=== PATIENT | male | born 1935 | race Caucasian/White ===

== ENCOUNTER 2016-10-28 20:18 | Emergency (ER) | payer MEDICARE, BC ==
[~2016-10-28 20:18] MED LIST: Lidocaine 1% with EPINEPHrine 1:100,000 10 ML MDV INFILT ONE
[2016-10-28] MEDS ORDERED: Diphtheria,Pertussis(Acell),Tetanus Vaccine 0.5 ML SDV IM ONE (21:25)
[2016-10-28] MEDS ORDERED: Cephalexin 500 MG Cap PO ONE (21:38)
[2016-10-28] MEDS ORDERED: Acetaminophen/HYDROcodone 325-5 MG Tab PO ONE (21:38)
[2016-10-28 21:44] VITALS: BP 138/67
--- NOTE | 2016-11-02 16:30 | ER ---
DATE SEEN: 10/28/2016 TIME SEEN: The patient was seen at 2099, was brought at 2049. 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 No compromised sensation in the hand. Can move his fingers well. Tetanus is not up-to-date. He is not on antibiotics. ALLERGIES: He has no allergies. PAST MEDICAL HISTORY: Significant for usin. Warfarin. 2. Lipitor. 3. Metoprolol. 4. Gabapentin. 5. Spiriva. 6. Donepezil. Atrial fibrillation. ALLERGIES: None. MEDICATIONS: As noted above. IMMUNIZATIONS: Tdap is not up to date. Was given today. PHYSICAL EXAMINATION: VITAL SIGNS: Blood pressure 150/54, heart rate 70, respirations 16, pulse oximetry 96%, temperature is 36.1. The patient has irregular heartbeat. HEENT: He has a slight droop on the side of his face, right-sided droop greater than left. GENERAL: He is an alert man in no acute distress. He is accompanied by his . NECK: Without bruits. LUNGS: Clear. HEART: Without murmur. Has occasional irregular beat. ABDOMEN: Soft. No guarding. No abdominal discomfort. EXTREMITIES: Without edema. Left upper extremity, mid lateral forearm has a 3 cm laceration which is triangular in appearance. Wound was cleansed in the sink previously and then lavaged and cleansed again and then injected with 1% lidocaine with epinephrine. The wound was then closed with 6 stitches, 3 somewhat larger stitches for bringing the subcu and dermis together and then 3 other smaller stitches to realign the dermis. The patient tolerated the procedure well. No complications. The wound was dressed. Bacitracin applied. PLAN: Use Keflex 500 mg q.i.d. for 10 days. If any sign of redness or infection, see the doctor earlier, otherwise follow up with doctor in 3 days to evaluate the status. There is always a risk [place] because he could have some contaminants even though it was thoroughly washed and cleaned and lavaged. DIAGNOSES: Laceration left forearm 3 cm single-layer closure. Tetanus given. Otherwise healthy, has mild dementia. Taking anticoagulants, atrial fibrillation, dyslipidemia, hypertension. /[id number] NACHO/JOSAFAT
== END 2016-10-28 21:42 | disposition home or self-care (01) ==
LOC: FB.ED 20:18
DX: S51.812A Laceration without foreign body of left forearm, initial encounter (principal); I48.91 Unspecified atrial fibrillation; Z79.01 Long term (current) use of anticoagulants; W31.89XA Contact with other specified machinery, initial encounter
CPT/HCPCS: 12002; 90471; 90715; 99282; A9270

== ENCOUNTER 2017-03-01 13:30 | Emergency (ER) | payer MEDICARE, BC ==
--- NOTE | 2017-03-01 13:55 | EDM.PDOC ---
ED HPI GENERAL MEDICAL PROBLEM - General Chief Complaint: Laceration Stated Complaint: HEAD ELBOW BACK PAIN Time Seen by Provider: 03/01/17 13:35 Source of Information: Reports: Patient, Family History Limitations: Reports: Altered Mental Status - History of Present Illness INITIAL COMMENTS - FREE TEXT/NARRATIVE: Sukhwinder comes to [facility] ED with a scalp laceration that occurred unwitnessed this am while family was in [place], [place] to a medical appointment. He does know what or when the fall happened, or what he struck. He has an occipital scalp laceration and some contusions with superficial lacerations to the LUE. He denies chest pain, SOB, palpitations, dizziness, GI or upset. He is ambulatory. He takes Warfarin for AF. - Related Data Allergies Allergy/AdvReac Type Severity Reaction Status Date / Time No Known Allergies Allergy Verified 03/01/17 14:13 Home Meds: Home Meds Cephalexin [Keflex 250 MG/5 ML Susp] 500 mg PO Q6HR #20 tab 10/28/16 [Rx] Cephalexin [Keflex] 500 mg PO QID #20 capsule 10/28/16 [Rx] Donepezil HCl 10 mg PO BEDTIME 10/28/16 [History] Gabapentin [Neurontin] 900 mg PO BEDTIME 10/28/16 [History] Metoprolol Tartrate 25 mg PO BEDTIME 10/28/16 [History] Multivitamin [Multi-Day Vitamins] 1 intnl unit PO DAILY 10/28/16 [History] Tiotropium [Spiriva HandiHaler] 1 inhaler PO ASDIRECTED 10/28/16 [History] Warfarin Sodium [Jantoven] 5 mg PO ASDIRECTED 10/28/16 [History] atorvaSTATin [Lipitor] 20 mg PO BEDTIME 10/28/16 [History] Past Medical History HEENT History: Reports: Cataract, Impaired Vision Other HEENT History: wears glasses Cardiovascular History: Reports: Afib, High Cholesterol, Hypertension Respiratory History: Reports: COPD Hematologic History: Reports: Anticoagulation Therapy - Past Surgical History HEENT Surgical History: Reports: Tonsillectomy GI Surgical History: Reports: Appendectomy Social & Family History - Family History Family Medical History: Noncontributory - Tobacco Use Smoking Status *Q: Never Smoker Second Hand Smoke Exposure: No - Caffeine Use Caffeine Use: Reports: None - Recreational Drug Use Recreational Drug Use: No ED ROS GENERAL - Review of Systems Review Of Systems: Unable To Obtain (not a reliable historian to current or past events.) - Physical Exam Exam: See Below Exam Limited By: Altered Mental Status General Appearance: Alert, WD/WN, Mild Distress Eye Exam: Bilateral Eye: EOMI, Normal Inspection, PERRL Ears: Normal External Exam Nose: Normal Inspection Throat/Mouth: Normal Inspection, Normal Oropharynx Head Exam: Normocephalic, Scalp Lacerations (3.5 cm) Neck: Normal Inspection, Non-Tender, Full Range of Motion Respiratory/Chest: No Respiratory Distress, Lungs Clear, Normal Breath Sounds, No Accessory Muscle Use, Chest Non-Tender Cardiovascular: No Murmur, Irregularly Irregular GI/Abdominal: Normal Bowel Sounds, Soft, Non-Tender, No Organomegaly, No Distention, No Mass Neuro Exam (Abbreviated): Alert, CN II-XII Intact, No Motor/Sensory Deficits, Confused, Memory Loss Recent Events Back Exam: Normal Inspection Extremities: Normal Range of Motion, Other (contusions and superficial lacerations to LUE) Psychiatric: Other (mood neutral) Skin Exam: Warm, Dry, Ecchymosis, Erythema (LUE) ED Add Procedures - Additional/Other Procedure(s) Procedure(s) (Free Text): With patient consent, the 3.5 cm scalp wound was cleaned, and closed with standard tera x 5. Patient tolerated procedure well. Course - Vital Signs Text/Narrative:: Mr Caballero remained stable at the [facility] ED. Results of lab work was baseline including EKG. 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 Case was discussed with family. Mr Caballero is demonstrating poor insight and judgement, and would benefit from further neurological evaluation. He was advised not to drive a POV. - Orders/Labs/Meds Orders: Active Orders 24 hr Category Date Time Status Head wo Cont [CT] Stat Exams 03/01/17 13:47 Taken URINALYSIS W/MICROSCOPIC [UA W/MICROSCOPIC] [URIN] Stat Lab 03/01/17 13:47 Uncollected EKG 12 Lead [EK] Routine Ther 03/01/17 13:47 Ordered Labs: Laboratory Tests 03/01/17 03/01/17 03/01/17 Range/Units 14:25 14:25 14:25 WBC 13.0 H (4.5-12.0) X10-3/uL RBC 4.70 (4.30-5.75) x10(6)uL Hgb 14.3 (11.5-15.5) g/dL Hct 42.4 (30.0-51.3) % MCV 90.1 (80-96) fL MCH 30.4 (27.7-33.6) pg MCHC 33.8 (32.2-35.4) g/dL RDW 13.2 (11.5-15.5) % Plt Count 238 (125-369) X10(3)uL MPV 7.8 (7.4-10.4) fL Neut % (Auto) 75.0 (46-82) % Lymph % (Auto) 14.6 (13-37) % [place] % (Auto) 7.0 (4-12) % Eos % (Auto) 2 (1.0-5.0) % Baso % (Auto) 2 (0-2) % Neut # (Auto) 9.8 H (1.6-8.3) # Lymph # (Auto) 1.9 (0.6-5.0) # [place] # (Auto) 0.9 (0.0-1.3) # Eos # (Auto) 0.2 (0.0-0.8) # Baso # (Auto) 0.2 (0.0-0.2) # PT 18.4 H (8.7-11.1) INR 1.80 H (0.89-1.13) Sodium 139 (135-145) mmol/L Potassium 4.6 (3.5-5.3) mmol/L Chloride 102 (100-110) mmol/L Carbon Dioxide 28 (21-32) mmol/L BUN 20 H (7-18) mg/dL Creatinine 1.2 (0.70-1.30) mg/dL Est Cr Clr Drug Dosing 52.71 mL/min Estimated GFR (MDRD) 58 L (>60) BUN/Creatinine Ratio 16.7 (9-20) Glucose 113 (80-116) mg/dL Calcium 9.4 (8.6-10.2) mg/dL Total Bilirubin 0.5 (0.1-1.3) mg/dL AST 42 H (5-25) IU/L ALT 43 H (12-36) U/L Alkaline Phosphatase 81 (56-112) IU/L Troponin I (<0.017-0.056) ng/mL Total Protein 7.7 (6.0-8.0) g/dL Albumin 4.0 (3.2-4.6) g/dL Globulin 3.7 g/dL Albumin/Globulin Ratio 1.1 03/01/ Range/Units 14:25 WBC (4.5-12.0) X10-3/uL RBC (4.30-5.75) x10(6)uL Hgb (11.5-15.5) g/dL Hct (30.0-51.3) % MCV (80-96) fL MCH (27.7-33.6) pg MCHC (32.2-35.4) g/dL RDW (11.5-15.5) % Plt Count (125-369) X10(3)uL MPV (7.4-10.4) fL Neut % (Auto) (46-82) % Lymph % (Auto) (13-37) % [place] % (Auto) (4-12) % Eos % (Auto) (1.0-5.0) % Baso % (Auto) (0-2) % Neut # (Auto) (1.6-8.3) # Lymph # (Auto) (0.6-5.0) # [place] # (Auto) (0.0-1.3) # Eos # (Auto) (0.0-0.8) # Baso # (Auto) (0.0-0.2) # PT (8.7-11.1) INR (0.89-1.13) Sodium (135-145) mmol/L Potassium (3.5-5.3) mmol/L Chloride (100-110) mmol/L Carbon Dioxide (21-32) mmol/L BUN (7-18) mg/dL Creatinine (0.70-1.30) mg/dL Est Cr Clr Drug Dosing mL/min Estimated GFR (MDRD) (>60) BUN/Creatinine Ratio (9-20) Glucose (80-116) mg/dL Calcium (8.6-10.2) mg/dL Total Bilirubin (0.1-1.3) mg/dL AST (5-25) IU/L ALT (12-36) U/L Alkaline Phosphatase (56-112) IU/L Troponin I < 0.017 L (<0.017-0.056) ng/mL Total Protein (6.0-8.0) g/dL Albumin (3.2-4.6) g/dL Globulin g/dL Albumin/Globulin Ratio Departure - Departure Time of Disposition: 15:23 Disposition: Home, Self-Care 01 Condition: Fair Clinical Impression: Chronic subdural hematoma Laceration of occipital scalp Qualifiers: Encounter type: initial encounter Qualified Code(s): S01.01XA - Laceration without foreign body of scalp, initial encounter - Discharge Information Referrals: Delmer Tristan MD [Primary Care Provider] - Forms: ED Department Discharge - Problem List & Annotations (1) Chronic subdural hematoma SNOMED Code(s): 72370060 Code(s): I62.03 - NONTRAUMATIC CHRONIC SUBDURAL HEMORRHAGE Status: Acute Current Visit: Yes Annotation/Comment:: Advised follow up with Neurology regarding any further assessment. No change in meds. Bring urine specimen to ED when available. (2) Laceration of occipital scalp SNOMED Code(s): 727871441 Code(s): S01.01XA - LACERATION WITHOUT FOREIGN BODY OF SCALP, INITIAL ENCOUNTER Status: Acute Current Visit: Yes Annotation/Comment:: routine wound cares, and staple removal in 1 week. Qualifiers: Encounter type: initial encounter Qualified Code(s): S01.01XA - Laceration without foreign body of scalp, initial encounter (3) Back pain SNOMED Code(s): 672000849 Code(s): M54.9 - DORSALGIA, UNSPECIFIED Status: Acute Current Visit: Yes Annotation/Comment:: Upper back and shoulder girdle pains NOS. Mr Caballero's exam is nonfocal, and he is nonfocused about the nature of the fall. He may take Tylenol for pain. Qualifiers: Back pain location: thoracic back pain Chronicity: unspecified - Problem List Review Problem List Initiated/Reviewed/Updated: Yes - My Orders Last 24 Hours: My Active Orders 03/01/17 13:47 Head wo Cont [CT] Stat URINALYSIS W/MICROSCOPIC [UA W/MICROSCOPIC] [URIN] Stat EKG 12 Lead [EK] Routine - Assessment/Plan Last 24 Hours: My Active Orders 03/01/17 13:47 Head wo Cont [CT] Stat URINALYSIS W/MICROSCOPIC [UA W/MICROSCOPIC] [URIN] Stat EKG 12 Lead [EK] Routine Plan: Follow up with PCP.
[2017-03-01 16:18] VITALS: BP 120/76
--- NOTE | 2017-03-02 14:37 | CT ---
INDICATION: Unwitnessed fall. Recent episode of confusion, laceration back of head. Patient on blood thinners. No headache or new dizziness. CT HEAD WITHOUT CONTRAST: Serial contiguous 2.5 and 5-mm sections were obtained through the brain without contrast. No comparisons were available. Study date 03/01/2017. Total Exam DLP = 949.36 mGy-cm. Paranasal sinuses and mastoid air cells appear to be well aerated. No definite cranial fracture site could be identified. Degenerative changes are noted at the atlantoodontoid joint of moderate degree. Calcifications are noted in the right vertebral and bilateral internal carotid arteries. No shift of midline structures is noted. Ventricles are prominent with the right lateral ventricle more prominent than the left. 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 At least a portion of this finding could be acute. However, no shift of midline structure was seen and no focal impression upon the lateral ventricle was identified to strongly suggest an acute process. This should be correlated clinically. If old images are available for comparison, they should be of further diagnostic benefit. A minimal subdural hygroma is suggested in the left frontal area, with somewhat more prominent apparent subdural hygroma on the right. However, the fluid on the right does show what appear to be some areas of increased density, raising question of a chronic or subacute subdural hematoma in that area. There are some areas of patchy decreased density in the white matter, suggesting mild microvascular disease additionally. No definite acute bleeding site or acute hematoma could be identified. IMPRESSION: 1. Chronic or subacute subdural hematoma suggested in the right frontal area, extending into the right temporal area. Old films, if available for comparison , may be helpful. 2. 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 3. Central atrophy, perhaps slightly more prominent on the right, since the right lateral ventricle is more prominent than the left. 4. Cerebrovascular disease with internal carotid and vertebral artery calcifications. 5. Mild microvascular disease type changes in the white matter - correlate clinically, as other cause of leukoencephalopathy cannot be entirely excluded. Report was called to Dr. Stahl at 1415 hours, 03/01/2017. MTDD
== END 2017-03-01 15:45 | disposition home or self-care (01) ==
LOC: FB.ED 13:30
DX: S01.01XA Laceration without foreign body of scalp, initial encounter (principal); I62.03 Nontraumatic chronic subdural hemorrhage; I10 Essential (primary) hypertension; E78.00 Pure hypercholesterolemia, unspecified; I48.91 Unspecified atrial fibrillation; Z79.01 Long term (current) use of anticoagulants; Z79.899 Other long term (current) drug therapy; X58.XXXA Exposure to other specified factors, initial encounter
CPT/HCPCS: 12002; 36415; 70450; 80053; 84484; 85025; 85610; 93005; 99283; 99285